=== PATIENT | female | born 2000 | race African-American/Black ===

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

== ENCOUNTER 2022-05-29 17:53 | Emergency (ER) | payer OTHER | END 2022-05-29 18:15 | disposition left against medical advice (07) | LOC: ERS 17:53 | DX: Z53.21 Procedure and treatment not carried out due to patient leaving prior to being seen by health care provider (principal) ==

== ENCOUNTER 2022-06-06 17:45 | Emergency (ER) | payer OTHER | END 2022-06-06 19:00 | disposition left against medical advice (07) | LOC: ERS 17:45 | DX: Z53.21 Procedure and treatment not carried out due to patient leaving prior to being seen by health care provider (principal) ==

== ENCOUNTER 2022-09-21 00:56 | Emergency (ER) | payer MEDICAID, OTHER ==
[2022-09-21] MEDS ORDERED: Ibuprofen 800 MG TAB ONE (02:57)
[2022-09-21] MEDS ORDERED: Acetaminophen 500 MG TAB ONE (02:57)
== END 2022-09-21 03:10 | disposition home or self-care (01) ==
LOC: ERS 00:56
DX: S89.92XA Unspecified injury of left lower leg, initial encounter (principal); W03.XXXA Other fall on same level due to collision with another person, initial encounter